=== PATIENT | male | born 2005 | race African-American/Black ===

== ENCOUNTER 2024-10-08 21:12 | Inpatient (IN) | payer OTHER ==
[~2024-10-08] VITALS: Ht 190.5 cm; Wt 81.7 kg
[2024-10-09 03:30] VITALS: BP 120/72; PULSE 53; RESP 18; TEMP 97.7; O2SAT 100
[2024-10-09 03:44] LABS: COVID AG,FIA SOURCE NASAL SWAB
[2024-10-09 04:13] LABS: SARS-COV2 (COVID) ANTIGEN,FIA Negative (Negative)
[2024-10-09 08:45] VITALS: BP 126/69; PULSE 80; RESP 19; TEMP 97.7; O2SAT 100
[2024-10-09 20:00] VITALS: BP 105/60; PULSE 62; RESP 20; TEMP 97.9; O2SAT 100
== END 2024-10-11 12:06 | DRG 125 ==
LOC: EMS 21:12 → EDH 10-09 00:34 → UNDOADMIN 10-09 02:49 → 6S 10-09 03:32 → EDH 10-09 03:32
PROVIDERS: ADMIT Hospitalist; ATTEND Hospitalist
DX: H35.383 Toxic maculopathy, bilateral (principal); Z20.822 Contact with and (suspected) exposure to COVID-19; H54.8 Legal blindness, as defined in USA
CPT/HCPCS: 97162; 97165; 99285; Z7502